=== PATIENT | male | born 1955 | race Caucasian/White ===

== ENCOUNTER 2018-06-25 01:23 | Emergency (ER) | payer BC ==
--- NOTE | 2018-06-25 02:06 | ER Document Report ---
ED General - General Stated Complaint: POSSIBLE ALTERIC REACTION Time Seen by Provider: 06/25/18 01:33 Notes: Patient is a 63-year-old male who says he woke up tonight having a severe allergic reaction. He said the skin was red and his lips were swollen he was itching all over and felt dizzy and lightheaded. Per medics arrived he said his face was swollen and had a red rash on his torso. They immediately gave him EpiPen as. His had given him Benadryl. The gave him steroids. They brought him to the ER. Symptoms resolved after the EpiPen. Patient currently has no difficulty breathing or swallowing. Paramedics said when he first arrived he was little bit hypotensive but this resolved after being given EpiPen. Patient says that today he was working outside in the garage cleaning stuff up. He said around 7 PM he had spaghetti for dinner. He said around 10 PM he took a Naprosyn and went to bed and then woke up with the reaction. He has had Naprosyn before but never had a reaction to it. He is denies any medications. No new soaps. No new foods. - Related Data Allergies/Adverse Reactions: No Known Allergies Allergy (Unverified 06/25/18 04:13) Past Medical History - Social History Smoking Status: Current Every Day Smoker Frequency of alcohol use: None Drug Abuse: None Family History: Reviewed & Not Pertinent Review of Systems - Review of Systems Notes: My Normal Review Basic REVIEW OF SYSTEMS: CONSTITUTIONAL : Denies fever, chills, or sweats. Denies recent illness. EENT: Lip swelling CARDIOVASCULAR: Denies chest pain. RESPIRATORY: Denies cough, cold, or chest congestion. Denies shortness of breath, difficulty breathing, or wheezing. GASTROINTESTINAL: Denies abdominal pain. Denies nausea, vomiting, or diarrhea. Patient did have loss of bowel continence. MUSCULOSKELETAL: Denies neck or back pain or joint pain or swelling. SKIN: Red puritic rash NEUROLOGICAL: Denies altered mental status or loss of consciousness. Denies headache. Denies weakness or paralysis or loss of use of either side. Denies problems with gait or speech. Denies sensory or motor loss. ALL OTHER SYSTEMS REVIEWED AND NEGATIVE. Physical Exam - Vital signs Vitals: Resp Pulse Ox 16 95 06/25/18 01:31 06/25/18 01:31 - Notes Notes: General Appearance: Well nourished, alert, cooperative, no acute distress, no obvious discomfort. Well appearing. Vitals: reviewed, See vital signs table. Head: no swelling or tenderness to the head Eyes: PERRL, EOMI, Conjuctiva clear Mouth: No decreasd moisture Throat: No tonsillar inflammation, No airway obstruction, No lymphadenopathy Neck: Supple, no neck tenderness, No neck swelling Lungs: No wheezing, No rales, No rhonci, No accessory muscle use, good air exchange bilaterally. Heart: Normal rate, Regular rythm, No murmur, no rub Abdomen: Normal BS, soft, No rigidity, No abdominal tenderness, No guarding, no rebound, no abdominal masses, no organomegaly Extremities: strength 5/5 in all extremities, good pulses in all extremities, no swelling or tenderness in the extremities, no edema. Skin: warm, dry, appropriate color, slight residual erythema on the upper extremities and torso. Erythema is blanchable nonpainful. Neuro: speech clear, oriented x 3, normal affect, responds appropriately to questions. Course - Re-evaluation Re-evalutation: 06/25/18 08:57 He was watched for several hours in the ED. He never had any recurrence of rash , swelling, or difficulty breathing. His vital signs remained stable. He said he had some mild itching but that has since resolved. I talked at length about potential different causes of the reaction. I told him there is no way for us to tell for sure exactly what caused it. I talked about possible exercise and food induced anaphylaxis. I did mention that even though has had Naprosyn in the past does not completely rule out as a potential cause of what could have happened tonight. I told him being that there is no previous pattern of this in the past is very difficult to tell what may have caused it. Informed him to avoid all NSAID medications outside of Tylenol until he is able follow-up with his primary care doctor and have a referral for allergy testing. I will place him on tapering dose prednisone. I have prescribed him a EpiPen as well. I talked to him he could take Benadryl as needed for any itching; however, if he develops spreading rash, any lip swelling, tongue swelling, difficulty breathing, or if he has used the EpiPen he must return to the ER immediately. Patient agrees with plan and will be discharged home. Dictation of this chart was performed using voice recognition software; therefore, there may be some unintended grammatical errors. 06/25/18 08:59 - Vital Signs Vital signs: Temp Pulse Resp BP Pulse Ox 98.2 F 15 105/84 95 06/25/18 04:55 06/25/18 04:55 06/25/18 04:55 06/25/18 04:55 - EKG Interpretation by Me Additional EKG results interpreted by me: 06/25/18 02:05 EKG is reviewed and interpreted by me. EKG shows sinus rhythm with a rate of [address] segment elevation or depression. No ischemic T wave inversions. [place] interval slightly prolonged. QRS duration is slightly prolonged. QT interval is within normal range. Discharge - Discharge Clinical Impression: Allergic reaction Qualifiers: Encounter type: initial encounter Qualified Code(s): T78.40XA - Allergy, unspecified, initial encounter Anaphylaxis Qualifiers: Encounter type: initial encounter Qualified Code(s): T78.2XXA - Anaphylactic shock, unspecified, initial encounter Condition: Good Disposition: HOME, SELF-CARE Additional Instructions: ACUTE ALLERGIC REACTION: Your symptoms are due to an allergic reaction. Allergy can cause hives, swelling of the hands, feet, and face, hoarseness, and difficulty swallowing or breathing. It may be due to exposure to medication, animal dander, foods, infection, or insect bites. Medication is a common cause, even when prior use of this same medication caused no problems. Acute treatment may include adrenalin and antihistamines. Usually, the specific allergic agent can't be identified unless repeated episodes occur. Home treatment includes the following: (1) Stop any suspicious medications. This will be discussed with you. (2) Oral antihistamines for the next four to five days. Example, diphenhydramine (Benadryl) every four hours. (3) You may also use cimetidine (Tagamet), ranitidine (Zantac), or famotidine (Pepcid) every four hours if diphenhydramine is not controlling itching and hives. (4) Avoid aspirin until the hives completely disappear. (5) Avoid hot baths or showers until the hives are completely gone. Call the doctor if faintness, difficulty swallowing, tightness in the chest, or wheezing occurs. EPINEPHRINE: An injection of epinephrine (also called adrenalin) is used to treat allergic reactions, asthma, and some other medical conditions. It is a stimulant medication that consticts blood vessels, relaxes smooth muscles such as in the bronchioles of the lung, elevates blood pressure, and increases heart rate. It can temporarily make you feel very nervous and shakey, but it's affects last only a short time, about 15 to 30 minutes at most. STEROID MEDICATION: You have been given a medicine of the cortisone/steroid class. This medication is used to control inflammation or allergy. It is usually only given for a short period of time, until the acute process subsides. There are usually no side effects from short-term use of cortisone-like medications. Some persons feel an increased sense of well-being and are not sleepy at bedtime. Long-term use of cortisone medications is best avoided, unless required for a severe condition. If your condition does not remit, or relapses after the course of corticosteroid medication, you should consult your physician. You appeared to have had a severe allergic reaction. We do not know exactly what you reacted to. I want you to withhold from taking any over the counter pain medicine with the exception of Tylenol. Please have your doctor refer you to an flight software test engineer for allergy testing. Please return to the ER immediately if you have to use theEpi pen, have facial swelling, tongue swelling, throat swelling, difficulty breathing, or feel that your reaction is becoming severe. Please use the Epi pen if you have any facial swelling, tongue swelling, or difficulty breathing. Prescriptions: RX: Epinephrine [Epipen 2-Kevin] 0.3 mg IM ASDIR PRN #1 packet PRN Reason: RX: Prednisone [Deltasone 10 mg Tablet] 10 mg PO ASDIR PRN #36 tablet PRN Reason:
[2018-06-25 05:02] VITALS: BP 105/84
--- NOTE | 2018-06-25 12:43 | EKG REPORT ---
SEVERITY:- ABNORMAL ECG - SINUS ARRHYTHMIA, RATE 45-64 LEFT ANTERIOR FASCICULAR BLOCK : Confirmed by: Alivia Davis MD 25-Jun-2018 12:43:03
== END 2018-06-25 05:02 | disposition home or self-care (01) ==
LOC: ER 01:23
DX: T78.2XXA Anaphylactic shock, unspecified, initial encounter (principal); T78.40XA Allergy, unspecified, initial encounter; R21 Rash and other nonspecific skin eruption
CPT/HCPCS: 93005; 93010; 99284